=== PATIENT | female | born 1995 | race Hispanic/Latino ===

== ENCOUNTER 2024-09-24 11:49 | Emergency (ER) | payer SELFPAY ==
[2024-09-24 11:55] VITALS: PULSE 98; RESP 20; TEMP 97.9
[2024-09-24] MEDS ORDERED: BACTRIM DS TAB1 EACH PO (13:29)
[2024-09-24] MEDS: IBUPROFEN 600 MG TAB PO STA (13:43)
[2024-09-24] MEDS: LIDOCAINE HCL 2% LOCAL 20 ML VIAL INJ ONE (13:43)
[2024-09-24 13:44] VITALS: BP 122/72; PULSE 84; RESP 20; O2SAT 97
== END 2024-09-24 13:41 | disposition home or self-care (01) ==
LOC: FSED 12:00
DX: L02.31 Cutaneous abscess of buttock (principal)
CPT/HCPCS: 99284